=== PATIENT | female | born 1980 | race Two or more races ===

== ENCOUNTER 2020-11-12 19:18 | Emergency (ER) | payer OTHER ==
[~2020-11-12] VITALS: Ht 167.6 cm; Wt 75.3 kg
[2020-11-12] MEDS ORDERED: RESTORIL30 M1 PO (19:42)
[2020-11-12] MEDS ORDERED: CLONAZEPAM1 MG PO (19:42)
[2020-11-12] MEDS ORDERED: DESVENLAFAXINE100 MG PO (19:42)
[2020-11-12] MEDS ORDERED: DICLOFENAC SODI75 MG PO (20:07)
[2020-11-12] MEDS ORDERED: NORFLEX100MG PO (20:07)
== END 2020-11-12 20:37 | disposition home or self-care (01) ==
LOC: ER 19:18
DX: G44.89 Other headache syndrome (principal)